=== PATIENT | male | born 1970 | race Caucasian/White ===

== ENCOUNTER 2020-12-09 10:44 | Outpatient (REF) | payer OTHER, SELFPAY | END 2020-12-09 10:45 | disposition home or self-care (01) | LOC: HO.LAB 10:44 | PROVIDERS: Visit Provider Internal Medicine | DX: Z20.822 Contact with and (suspected) exposure to COVID-19 (principal) | CPT/HCPCS: 36415; C9803; U0003 ==

== ENCOUNTER 2021-01-23 13:16 | Outpatient (REF) | payer OTHER, SELFPAY | END 2021-01-23 13:17 | disposition home or self-care (01) | LOC: HO.LAB 13:16 | PROVIDERS: Visit Provider Internal Medicine | DX: Z20.822 Contact with and (suspected) exposure to COVID-19 (principal) | CPT/HCPCS: 36415; C9803; U0003; U0005 ==

== ENCOUNTER 2021-03-31 10:57 | Outpatient (REF) | payer OTHER, SELFPAY | END 2021-03-31 10:58 | disposition home or self-care (01) | LOC: HO.LAB 10:57 | PROVIDERS: Visit Provider Internal Medicine | DX: Z20.822 Contact with and (suspected) exposure to COVID-19 (principal) | CPT/HCPCS: C9803; U0003; U0005 ==

== ENCOUNTER 2021-04-10 10:37 | Outpatient (REF) | payer OTHER, SELFPAY ==
[2021-04-10 11:42] LABS: Basophils Absolute Auto 0.1 X10*3/uL (0.0-0.2); Basophils Percent Auto 0.6 % (0-2); Eosinophils Absolute Auto 0.6 X10*3/uL (0.0-0.4); Eosinophils Percent Auto 4.3 % (0-4); Hematocrit 41.9 % (42-52); Imm Gran Abs Auto 0.09 X10*3/uL (0.00-0.03); Imm Gran Pct Auto 0.7 % (0.0-0.4); Lymphocytes Percent Auto 15.8 % (20-40); MANUAL DIFF FLAG SCAN; Mean Corpuscular Hemoglobin 26.5 pg (27.0-33.0); Mean Corpuscular Volume 85.3 fL (80-98); Mean Platelet Volume 10.4 fL (9.4-12.4); Monocytes Absolute Auto 1.7 X10*3/uL (0.1-1.2); Monocytes Percent Auto 13.4 % (2-11); Neutrophils Absolute Auto 8.4 X10*3/uL (2.0-8.3); Neutrophils Percent Auto 65.2 % (45-73); Platelet Count 247 X10*3/uL (160-400); Red Blood Count 4.91 X10*6/uL (4.60-5.80); Red Cell Distribution Width 15.2 % (11.0-16.0); SCAN SMEAR FLAG 1; White Blood Count 12.9 X10*3/uL (4.8-10.8)
[2021-04-10 11:48] LABS: D Dimer 224 NG/ML
[2021-04-10 11:55] LABS: B Type Natriuretic Peptide < 10 pg/mL (<100)
[2021-04-10 11:58] LABS: Glucose Urine UA NEG (NEG); Leukocyte Esterase Urine NEG (NEG); Nitrite Urine NEG (NEG); PH 6.5 (5.0-8.0); Specific Gravity - Urine 1.025 (1.005-1.025); Urine Blood TRACE (NEG); Urine Ketones NEG (NEG); Urine Protein NEG (NEG-TRACE)
[2021-04-10 12:00] LABS: Alanine Aminotransferase 40 U/L (0-40); Albumin Level 3.9 g/dL (3.5-5.0); Alkaline Phosphatase 131 U/L (39-117); Anion Gap 11 (12-20); Aspartate Amino Transferase 28 U/L (5-37); Bilirubin Total 0.3 mg/dL (0.0-1.0); Blood Urea Nitrogen 11 mg/dL (9-16); C Reactive Protein 5.09 mg/dL (< or = 0.50); Calcium 9.4 mg/dL (8.4-10.2); Carbon Dioxide 29 mmol/L (22-29); Chloride 105 mmol/L (96-108); Cholesterol 144 mg/dL; Estimated Glomerular Filt Rate > 60; Glucose Fasting 124 mg/dL (60-99); HDL Cholesterol 45 mg/dL; LDL Cholesterol Calculated 86 mg/dl; Potassium 4.8 mmol/L (3.3-5.1); Sodium 140 mmol/L (135-145); Total Protein 6.9 g/dL (6.5-8.0); Triglycerides 69 mg/dL
[2021-04-10 12:05] LABS: Appearance Urine CLEAR; Color Urine YELLOW
[2021-04-10 12:17] LABS: Creatinine Urine 142.09 mg/dL; Microalbum/Creatinine Ratio Ur 4.9 ug/mg cr
[2021-04-10 12:24] LABS: Estimated Average Glucose 143 mg/dL; Hemoglobin A1c % 6.6 %
[2021-04-10 12:29] LABS: Erythrocyte Sedimentation Rate 11 MM/HR (0-15)
[2021-04-10 12:32] LABS: Calcium Oxalate Crystals Urine 2+ /LPF; RBC Urine 0-2 /HPF (0); WBC Urine 0-2 /HPF (0-4)
[2021-04-10 13:00] LABS: SLIDE REVIEW VERIFIED
== END 2021-04-10 10:38 | disposition home or self-care (01) ==
LOC: HO.LAB 10:37
PROVIDERS: PCP Internal Medicine; Visit Provider Internal Medicine
DX: E11.9 Type 2 diabetes mellitus without complications (principal); M79.606 Pain in leg, unspecified; M79.89 Other specified soft tissue disorders; R50.9 Fever, unspecified; R53.81 Other malaise; E78.00 Pure hypercholesterolemia, unspecified
CPT/HCPCS: 36415; 80053; 80061; 81001; 81003; 82043; 83036; 83880; 85025; 85379; 85652; 86140

== ENCOUNTER 2021-04-10 11:47 | Outpatient (REF) | payer OTHER, SELFPAY ==
--- NOTE | ~2021-04-10 | US_ITS ---
EXAMINATION: US VENOUS ULTRASOUND WITH DOPPLER LOWER EXTREMITY, BILATERAL CLINICAL INFORMATION: Bilateral leg pain. Status post moderate wax and yesterday. Multiple lymph nodes in bilateral groin COMPARISON: None TECHNIQUE: Ultrasound of the deep veins is performed from the hip to the calf with compression sonography and color and pulse Doppler assessment. Spectral analysis with color-flow imaging is performed. FINDINGS: RIGHT: There is normal venous compression and respiratory variation and augmented flow. The visualized common femoral vein, superficial femoral vein, profunda femoral vein, popliteal vein, and the trifurcation region shows no evidence of deep venous thrombosis. There is a small popliteal fossa cyst measuring 3.2 x 1.1 x 2.7 cm. There are multiple lymph nodes visualized in right groin. The largest lymph node measures 2.8 x 1.1 x 1.70 cm and has normal architecture. LEFT: There is normal venous compression and respiratory variation and augmented flow. The visualized common femoral vein, superficial femoral vein, profunda femoral vein, popliteal vein, and the trifurcation region shows no evidence of deep venous thrombosis. There is no significant popliteal fossa cyst. If the patient's symptoms persist, followup ultrasound in 5 days 7 days might be of value to exclude proximal propagation from a non-visualized calf vein. US/US venous duplex LE BI IMPRESSION: No DVT demonstrated in the bilateral lower extremity. Small right popliteal fossa/Sr's cyst. Small lymph nodes in right groin.
== END 2021-04-10 11:48 | disposition home or self-care (01) ==
LOC: HO.US 11:47
PROVIDERS: PCP Internal Medicine; Visit Provider Internal Medicine
DX: M79.604 Pain in right leg (principal); M79.605 Pain in left leg; M79.89 Other specified soft tissue disorders
CPT/HCPCS: 93970

== ENCOUNTER 2021-08-25 11:28 | Outpatient (REF) | payer OTHER, SELFPAY | END 2021-08-25 11:29 | disposition home or self-care (01) | LOC: HO.LAB 11:28 | PROVIDERS: PCP Internal Medicine; Visit Provider Internal Medicine | DX: Z20.822 Contact with and (suspected) exposure to COVID-19 (principal) | CPT/HCPCS: U0003; U0005 ==

== ENCOUNTER 2022-01-26 07:50 | Emergency (ER) | payer OTHER, SELFPAY ==
[2022-01-26 08:04] VITALS: BP 115/60; PULSE 61; RESP 19; TEMP 36.6; O2SAT 99; BMI 30.9
[2022-01-26 08:31] LABS: MANUAL DIFF FLAG NO
[2022-01-26 08:34] LABS: Appearance Urine CLEAR; Color Urine YELLOW; Glucose Urine UA 100 MG/DL (NEG); Leukocyte Esterase Urine NEG (NEG); Nitrite Urine NEG (NEG); Specific Gravity - Urine 1.025 (1.005-1.025); Urine Blood NEG (NEG); Urine Ketones NEG (NEG); Urine Protein NEG (NEG-TRACE)
[2022-01-26 08:35] LABS: Basophils Absolute Auto 0.1 X10*3/uL (0.0-0.2); Basophils Percent Auto 0.5 % (0-2); Eosinophils Absolute Auto 0.9 X10*3/uL (0.0-0.4); Eosinophils Percent Auto 8.1 % (0-4); Hematocrit 39.3 % (42.0-52.0); Hemoglobin 12.4 g/dl (14.0-18.0); Imm Gran Abs Auto 0.07 X10*3/uL (0.00-0.03); Imm Gran Pct Auto 0.6 % (0.0-0.4); Lymphocytes Absolute Auto 3.5 X10*3/uL (1.2-4.9); Lymphocytes Percent Auto 30.7 % (20-40); Mean Corpuscular HGB Conc 31.6 g/dl (31.0-36.0); Mean Corpuscular Hemoglobin 26.4 pg (27.0-33.0); Mean Corpuscular Volume 83.6 fL (80.0-98.0); Monocytes Absolute Auto 0.8 X10*3/uL (0.1-1.2); Monocytes Percent Auto 7.1 % (2-11); Neutrophils Absolute Auto 6.1 x10*3/uL (2.0-8.3); Platelet Count 282 X10*3/uL (160-400); Red Cell Distribution Width 15.3 % (11.0-16.0); White Blood Count 11.5 X10*3/uL (4.8-10.8)
[2022-01-26 09:01] LABS: Alanine Aminotransferase 18 U/L (0-40); Albumin Level 3.9 g/dL (3.5-5.0); Alkaline Phosphatase 129 U/L (39-117); Anion Gap 9 (12-20); Aspartate Amino Transferase 18 U/L (5-37); Bilirubin Direct < 0.2 mg/dL (0.0-0.5); Bilirubin Total 0.2 mg/dL (0.0-1.0); Blood Urea Nitrogen 11 mg/dL (9-16); Calcium 9.3 mg/dL (8.4-10.2); Carbon Dioxide 29 mmol/L (22-29); Chloride 105 mmol/L (96-108); Creatinine Clr Calc Pharmacy 125.1; Estimated Glomerular Filt Rate > 60; Glucose Random 115 mg/dL (60-115); Lipase 10 U/L (8-78); Potassium 4.4 mmol/L (3.3-5.1); Sodium 139 mmol/L (135-145); Total Protein 6.8 g/dL (6.5-8.0)
--- NOTE | 2022-01-26 11:05 | ED_ITS ---
HPI - Abdominal Pain General Chief Complaint: Abdominal Pain Stated Complaint: abd pain/lower back Time Seen by Provider: 01/26/22 10:58 Source: patient Mode of arrival: ambulatory Limitations: no limitations History of Present Illness HPI narrative: Patient comes to the emergency room complaining of intermittent abdominal pain. Patient states that for last 2 weeks, he has noted that whenever he strained his abdominal muscles, he notices bulging coming from the middle of his abdomen. Patient has a previous surgery. In January of 2018, the patient had an exploratory laparotomy secondary to a perforated gastric ulcer, repaired with Parvez patch. At this time, patient has no abdominal pain. However when pat ient is laying down and sits up, the bulging appears. Patient denies abdominal pain, no fever, no chills, no vomiting or diarrhea Related Data Home Medications Medication Instructions Recorded Confirmed methadone 10 mg/mL oral concentrate 89 mg PO DAILY ml 04/10/21 04/10/21 polyethylene glycol 3350 17 238 g PO DAILY PRN g 04/10/21 gram/dose oral powder (Miralax) Previous Rx's Medication Instructions Recorded bisacodyl 5 mg tablet,delayed 10 mg PO ONCE 1 Days #2 tab 10/24/20 release (Dulcolax (bisacodyl)) Allergies Allergy/AdvReac Type Severity Reaction Status Date / Time No Known Allergies Allergy Verified 04/10/21 09:54 [No Known Allergies*] Review of Systems Review of Systems Constitutional : No Weight loss, No Fever, No Chills, No Night Sweats, No Fatigue, No Malaise ENT/Mouth : No Hearing loss, No Ear Pain, No Nasal Congestion, No Sinus Pain, No Hoarseness, No sore throat, No Rhinorrhea, No Swallowing Difficulty Eyes: No Eye Pain, No Swelling, No Redness, No Foreign Body, No Discharge, No Vision Changes Cardiovascular : No Chest Pain, No SOB, No Dyspnea on Exertion, No Orthopnea, No Edema, No Palpitations Respiratory : No Cough, No Sputum, No Wheezing, No Smoke Exposure, No Dyspnea Gastrointestinal : No Nausea, No Vomiting, No Diarrhea, No Constipation, complaining of abdominal bulging with abdominal pressure, pain which is intermittent which goes along with the bulging. No pain at this time. No Hematochezia, No Melena Genitourinary : no irregular bleeding, No Dysuria, No Urinary Frequency, No Hematuria, No Urinary Incontinence, No Urgency, No Flank Pain, No Urinary Flow Changes, No Hesitancy Musculoskeletal : No joint pain, No Myalgias, No Joint Swelling Skin : No Skin Lesions, No rash Neuro : No Weakness, No Numbness, No Paresthesias, No Loss of Consciousness, No Dizziness, No Headache Psych : No Anxiety/Panic, No Depression, No SI/HI/AH/VH, No Social Issues, Heme/Lymph: No Bruising, No Bleeding,No Lymphadenopathy Endocrine : No Polyuria, No Polydipsia, No Temperature Intolerance [facility] Past Medical History Medical History Diabetes mellitus Fever Hx of drug abuse Hx of gastric ulcer Malaise Obesity (BMI 30-39.9) Pain and swelling of lower extremity Smoker Surgical History History of exploratory laparotomy History of surgery Family History Family History Father No problems noted. Mother H/O ETOH abuse Family/Other FH: mental illness Social History Social History Alcohol intake: former Cigarette Packs Per Day: 1 Advance Directives: No Advance Directives Information Provided: No Physical Exam ED Vital Signs: Vital Signs - 24 hr 01/26/22 08:04 Temperature 98 F Pulse Rate 61 Respiratory Rate 19 Blood Pressure 115/60 Pulse Oximetry 99 BMI result Body Mass Index 30.9 Const Other: Appearance: Alert. Oriented X3. No acute distress. Well-appearing Eyes: Pupils equal, round and reactive to light. ENT: Pharynx normal. Neck: Normal inspection. Neck supple. No lymph nodes noted. No crepitus CVS: Normal heart rate and rhythm. Pulses normal. Normal S1 and S2 Respiratory: No respiratory distress. Breath sounds normal. No Wheezing. No rales Abdomen: Soft and nontender. Midline healed scar. Patient has a bulging midline abdominal hernia, it self reduces when patient lies down. The patient stands up, the hernia self reduces as well easily. Skin: Skin warm and dry. Normal skin color. Normal skin turgor. Extremities: No lower extremity edema. No lower extremity edema. No Lacerations. No Rash Neuro: Oriented X 3. No motor deficit. No sensory deficit. Moving all extermities. No slurred speech. Course Course Course Narrative: Labs were discussed with the patient, no acute findings . Patient does not have an incarcerated hernia. Discussed with the patient that he will be referred to surgery for possible mesh surgery. I discussed with the patient that if the hernia becomes incarcerated, he needs to return to the emergency room. Signs and symptoms discussed with the patient patient agrees with plan. MDM - Abdominal Pain Lab Data Result diagrams: 01/26/22 08:23 01/26/22 08:23 Labs: Lab Results 01/26/22 01/26/22 01/26/22 Range/Units 08:15 08:23 08:23 WBC 11.5 H (4.8-10.8) X10*3/uL RBC 4.70 (4.60-5.80) X10*6/uL Hgb 12.4 L (14.0-18.0) g/dl Hct 39.3 L (42.0-52.0) % MCV 83.6 (80.0-98.0) fL MCH 26.4 L (27.0-33.0) pg MCHC 31.6 (31.0-36.0) g/dl RDW 15.3 (11.0-16.0) % Plt Count 282 (160-400) X10*3/uL MPV 10.0 (9.4-12.4) fL Immature Gran % (Auto) 0.6 H (0.0-0.4) % Neut % (Auto) 53.0 (45-73) % Lymph % (Auto) 30.7 (20-40) % [place] % (Auto) 7.1 (2-11) % Eos % (Auto) 8.1 H (0-4) % Baso % (Auto) 0.5 (0-2) % Lymph # (Auto) 3.5 (1.2-4.9) X10*3/uL [place] # (Auto) 0.8 (0.1-1.2) X10*3/uL Eos # (Auto) 0.9 H (0.0-0.4) X10*3/uL Baso # (Auto) 0.1 (0.0-0.2) X10*3/uL Abs Immat Gran (auto) 0.07 H (0.00-0.03) X10*3/uL Absolute Neuts (auto) 6.1 (2.0-8.3) x10*3/uL Absolute Nucleated RBC 0.000 (0.0-0.012) X10*3/uL Nucleated RBC % (auto) 0.0 (0.0-0.2) /100WBC Sodium 139 (135-145) mmol/L Potassium 4.4 (3.3-5.1) mmol/L Chloride 105 (96-108) mmol/L Carbon Dioxide 29 (22-29) mmol/L Anion Gap 9 L (12-20) BUN 11 (9-16) mg/dL Creatinine 0.82 (0.5-1.4) mg/dL Estim Creat Clear Calc 125.1 Estimated GFR > 60 Random Glucose 115 (60-115) mg/dL Calcium 9.3 (8.4-10.2) mg/dL Total Bilirubin 0.2 (0.0-1.0) mg/dL Direct Bilirubin < 0.2 (0.0-0.5) mg/dL AST 18 (5-37) U/L ALT 18 (0-40) U/L Alkaline Phosphatase 129 H (39-117) U/L Total Protein 6.8 (6.5-8.0) g/dL Albumin 3.9 (3.5-5.0) g/dL Lipase 10 (8-78) U/L Urine Color YELLOW Urine Appearance CLEAR Urine pH 6.0 (5.0-8.0) Ur Specific [place] 1.025 (1.005-1.025) Urine Protein NEG (NEG-TRACE) MG/DL Urine Glucose (UA) 100 H (NEG) MG/DL Urine Ketones NEG (NEG) MG/DL Urine Blood NEG (NEG) Urine Nitrite NEG (NEG) Ur Leukocyte Esterase NEG (NEG) Discharge Plan Discharge Clinical Impression: Abdominal wall hernia Patient Disposition: Home, Self-Care Instructions: Ventral Hernia (ED) Additional Instructions: Please follow-up with your primary care physician tomorrow. If you have any worsening or new symptoms, please return to the emergency room or call 911 Prescriptions: No Action bisacodyl [Dulcolax (bisacodyl)] 5 mg tablet,delayed release (DR/EC) 10 mg PO ONCE 1 Days Qty: 2 0RF Rx Instructions: Take 2 tablets at 12:00pm the day before your procedure, bowel prep methadone 10 mg/mL concentrate 89 mg PO DAILY 0RF Label Comments: [facility] [place] polyethylene glycol 3350 [Miralax] 17 gram/dose powder 238 g PO DAILY PRN0RF Rx Instructions: Take as directed by mouth Referrals: Joseph Grimaldo MD [Physician] - 2 days
== END 2022-01-26 11:34 | disposition home or self-care (01) ==
PROVIDERS: Emergency Provider Emergency Medicine
DX: K43.9 Ventral hernia without obstruction or gangrene (principal); R10.9 Unspecified abdominal pain; E11.9 Type 2 diabetes mellitus without complications; F11.20 Opioid dependence, uncomplicated; F17.200 Nicotine dependence, unspecified, uncomplicated
CPT/HCPCS: 36415; 80048; 80076; 81003; 83690; 85025; 99283

== ENCOUNTER → 2022-02-05 09:50 | Outpatient (BNVA) | payer OTHER, SELFPAY | PROVIDERS: Visit Provider Surgery | DX: L76.82 Other postprocedural complications of skin and subcutaneous tissue (principal) | CPT/HCPCS: 99202 ==

== ENCOUNTER 2022-03-16 09:08 | Outpatient (REF) | payer OTHER, SELFPAY ==
[2022-03-16 09:40] LABS: COVID-19 Test Negative (Negative); IDNOW Serial# 08D9AD1C
== END 2022-03-16 09:09 | disposition home or self-care (01) ==
LOC: HO.LAB 09:08
PROVIDERS: Visit Provider Internal Medicine
DX: Z20.822 Contact with and (suspected) exposure to COVID-19 (principal)
CPT/HCPCS: 87635; C9803

== ENCOUNTER 2022-03-20 07:01 | Emergency (ER) | payer OTHER, SELFPAY ==
[2022-03-20 07:19] VITALS: BP 147/80; PULSE 103; RESP 19; TEMP 36.8; O2SAT 96; BMI 32.3
--- NOTE | 2022-03-20 08:33 | ED_ITS ---
HPI - Abdominal Pain General Chief Complaint: Abdominal Pain Stated Complaint: abd pain Time Seen by Provider: 03/20/22 08:10 Source: patient Limitations: no limitations and language barrier ([facility] home [employer] consultant used) History of Present Illness HPI narrative: This is a 51-year-old male who complains of pain in his abdomen for about 3 months. The patient has been previously seen and diagnosed with the ventral hernia. The patient did have a prior midline laparotomy after an accident. The patient followed up with Dr. Grimaldo and was told that surgery was not indicated at that point. The patient complains that pain is severe when he stands up and that the hernia bulges when he stands up, goes away when he lies down. He said when the pain comes on he also gets a bad headache. He denies any nausea vomiting. His appetite is generally good, though he ate less during the day yesterday until evening. He denies any fever. He denies any problems with bowel movements. Related Data Home Medications Medication Instructions Recorded Confirmed methadone 10 mg/mL oral concentrate 89 mg PO DAILY ml 04/10/21 02/05/22 polyethylene glycol 3350 17 238 g PO DAILY PRN g 04/10/21 02/05/22 gram/dose oral powder (Miralax) Previous Rx's Medication Instructions Recorded bisacodyl 5 mg tablet,delayed 10 mg PO ONCE 1 Days #2 tab 10/24/20 release (Dulcolax (bisacodyl)) ibuprofen 800 mg tablet 800 mg PO Q8H PRN #30 tab 03/20/22 tramadol 100 mg tablet 100 mg PO Q6H PRN #12 tab 03/20/22 Allergies Allergy/AdvReac Type Severity Reaction Status Date / Time No Known Allergies Allergy Verified 02/05/22 09:56 [No Known Allergies*] Review of Systems Review of Systems As per HPI Constitutional: Denies fever(s) Cardiovascular: Reports no additional cardiovascular complaints Respiratory: Reports no additional respiratory complaints Gastrointestinal: Reports abdominal pain, Denies constipation, Denies nausea and Denies vomiting Genitourinary: Reports no additional male genitourinary complaints Musculoskeletal: Reports no additional musculoskeletal complaints PMFSH Past Medical History Medical History Diabetes mellitus Fever Hx of drug abuse Hx of gastric ulcer Incisional pain Malaise Obesity (BMI 30-39.9) Pain and swelling of lower extremity Smoker Surgical History History of exploratory laparotomy History of surgery Family History Family History Father No problems noted. Mother H/O ETOH abuse Family/Other FH: mental illness Social History Social History Alcohol intake: former Cigarette Packs Per Day: 1 Advance Directives: No Advance Directives Information Provided: Yes Physical Exam ED Vital Signs: Vital Signs - 24 hr 03/20/22 07:19 03/20/22 09:15 Temperature 98.2 F Pulse Rate 103 H 66 Respiratory Rate 19 16 Blood Pressure 147/80 H 115/71 Pulse Oximetry 96 95 BMI result Body Mass Index 32.3 Const General: no acute distress Orientation/consciousness: patient oriented x3 HENMT Head: Yes normal to inspection General nose exam: Normal external nose present Mouth: moist mucous membranes Throat: Yes posterior oropharynx normal, Yes tonsils normal and Yes uvula midline Eyes Eyelids: Yes eyelids normal Conjunctivae: conjunctivae normal Pupils: Equal, round and reactive pupils present Neck Neck: Yes supple Resp Effort & Inspection: normal respiratory effort Auscultation: clear to auscultation bilaterally Cardio Rate: regular rate Rhythm: regular rhythm Heart sounds: S1 normal heart sound present, S2 normal heart sound present, no gallops, no murmurs and no rubs GI Other: Small ventral hernia just off of the midline where there is well-healed incisional scar, on the left. Slight bulge noted when the patient stands up but no hernia palpable the patient is lying down. Patient is able to turn over on the gurney and sit up easily Inspection: No distended Palpation (GI): Soft to palpation and nontender Auscultation: normal bowel sounds Skin General skin exam: other (Warm and dry) Neuro General: patient oriented x3 and CN's II-XI intact bilaterally Cranial nerves: Yes Equal, round and reactive pupils present Extrem General: Yes no pedal edema Psych Affect: normal affect Attitude: cooperative Course Course Course Narrative: Patient with a subacute left-sided ventral hernia, not incarcerated, bulges slightly when patient stands up. Patient is on methadone, or has been on methadone, complains of severe pain when at work. No evidence of incarceration or any other emergent condition. Patient can follow up with General surgery, whom he has seen previously regarding this. Patient is advised to wear an abdominal binder while at work, he use ibuprofen and acetaminophen for pain Discharge Plan Discharge Clinical Impression: Ventral hernia Patient Disposition: Home, Self-Care Instructions: Ventral Hernia (ED) Additional Instructions: Wear an abdominal binder while you were at work to help support your abdominal wall. Return for any worsened symptoms such as other hernia bulging out and not going and when you lie down, nausea vomiting, not passing stool or gas, abdominal distension, fever. Follow-up with general surgery. Take the pain medicine as prescribed. Prescriptions: New ibuprofen 800 mg tablet 800 mg PO Q8H PRN (Reason: pain) Qty: 30 0RF tramadol 100 mg tablet 100 mg PO Q6H PRN (Reason: pain) Qty: 12 0RF No Action bisacodyl [Dulcolax (bisacodyl)] 5 mg tablet,delayed release (DR/EC) 10 mg PO ONCE 1 Days Qty: 2 0RF Rx Instructions: Take 2 tablets at 12:00pm the day before your procedure, bowel prep methadone 10 mg/mL concentrate 89 mg PO DAILY 0RF Label Comments: [facility] [place] polyethylene glycol 3350 [Miralax] 17 gram/dose powder 238 g PO DAILY PRN0RF Rx Instructions: Take as directed by mouth Referrals: Joseph Grimaldo MD [Physician] - 5 days Interventions: ED Discharge Assessment Last Done: 03/20/22 09:29 Discharge Date/Time: 03/20/22 09:30
[2022-03-20 09:15] VITALS: BP 115/71; PULSE 66; RESP 16; O2SAT 95
[2022-03-20] MEDS: Ibuprofen 800 MG TABLET PO (09:26)
[2022-03-20] MEDS: traMADoL HCL 50 MG TABLET 100 MG PO (09:26)
== END 2022-03-20 09:30 | disposition home or self-care (01) ==
PROVIDERS: Emergency Provider Emergency Medicine
DX: K43.9 Ventral hernia without obstruction or gangrene (principal); Z79.899 Other long term (current) drug therapy
CPT/HCPCS: 99283